=== PATIENT | male | born 1985 | race African-American/Black ===

== ENCOUNTER 2019-01-12 22:02 | Emergency (ER) | payer BC, OTHER ==
[2019-01-12 22:08] VITALS: BP 153/99; PULSE 80; TEMP 97.6; BMI 23.0
--- NOTE | 2019-01-12 22:45 | PDOC ---
History of Present Illness - General Chief Complaint: Pain, Acute Stated Complaint: LEFT HIP PAIN Time Seen by Provider: 01/12/19 22:18 History Source: Patient Exam Limitations: No Limitations - History of Present Illness Initial Comments: 01/12/19 22:50 This is a 33-year-old female who comes in complaining of left hip pain. 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 Patient otherwise does have some hip discomfort secondary to his job. Patient said he didn't do anything different or unusual and just developed some hip discomfort is got progressively over the last 24 hours. Patient has not taken anything for the discomfort. Allergies: as per nursing notes Past Medical History: none Social history: Lives with family. No smoking. No alcohol. No illicit drugs. Surgical history: None General: No fevers or chills, no weakness, no weight loss HEENT: No change in vision. No sore throat,. No ear pain CardioVascular: no chest discomfort. No shortness of breath Respiratory:No cough, or wheezing. Gastrointestinal: no nausea, vomiting, diarrhea or constipation, No rectal bleeding Genitourinary: No dysuria, hematuria, or frequency Musculoskeletal: Left hip discomfort especially on weightbearing and range of motion Neurologic: No headache, vertigo, dizziness or loss of consciousness Psychiatric: nor depression Skin: No rashes or easy bruising Endocrine: no increased thirst or abnormal weight change Allergic: no skin or latex allergy All other systems reviewed and normal GENERAL: The patient is awake, alert, and fully oriented, in no acute distress. HEAD: Normal with no signs of trauma. EYES: Pupils equal, round and reactive to light, extraocular movements intact, sclera anicteric, conjunctiva clear. EXTREMITIES:atraumatic, Normal range of motion, no edema. Hip there is no bony tenderness on palpation there is increased discomfort on internal rotation and abduction. Neurovascular distally is intact NEUROLOGICAL: Normal speech, normal gait. PSYCH: Normal mood, normal affect. SKIN: Warm, Dry, normal turgor, no rashes or lesions noted. X-ray negative for any acute pathology reviewed by me Assessment and plan: This is a 33-year-old male who comes in complaining of left hip pain. There is no obvious injury or pathology on my exam or x-ray. Patient given an NSAID and discharged. Patient given referral to an orthopedist. 01/12/19 23:15 X-ray no acute pathology factors or dislocation Patient will be referred to an orthopedist for follow-up and made no weightbearing given the fact these had the repair and will most likely need a CAT scan or MRI to rule out any subtle pathology. Past History - Past Medical History Allergies/Adverse Reactions: Allergies Allergy/AdvReac Type Severity Reaction Status Date / Time No Known Allergies Allergy Verified 01/12/19 22:03 Home Medications: Ambulatory Orders NK [No Known Home Medication] 01/12/19 COPD: No - Suicide/Smoking/Psychosocial Hx Smoking History: Never smoked Have you smoked in the past 12 months: No Hx Alcohol Use: Yes Drug/Substance Use Hx: No *Physical Exam - Vital Signs Last Vital Signs Temp Pulse Resp BP Pulse Ox 97.6 F 80 16 153/99 99 01/12/19 22:02 01/12/19 22:02 01/12/19 22:02 01/12/19 22:02 01/12/19 22:02 *DC/Admit/Observation/Transfer Diagnosis at time of Disposition: Hip pain Qualifiers: Laterality: left Qualified Code(s): M25.552 - Pain in left hip - Discharge Dispostion Disposition: HOME Condition at time of disposition: Stable Decision to Admit order: No - Referrals Referrals: Roly Michele DO [Staff Physician] - - Patient Instructions Additional Instructions: Take ibuprofen 3 tablets 3 times a day with food don't take on an empty stomach. No weightbearing until cleared by the orthopedist Follow-up with the orthopedist on Wednesday call tomorrow for an appointment x-rays were normal. Return to the emergency department immediately with ANY new, persistent or worsening symptoms. Continue any medications as previously prescribed by your physician. You should follow up with your primary doctor as soon as possible regarding today's emergency department visit. . Please make sure your doctor reviews the results of your emergency evaluation. Thank you for coming to the Emergency Department today for your care. It was a pleasure to see you today. Please note that your evaluation is INCOMPLETE until you follow-up with your doctor. - Post Discharge Activity Forms/Work/School Notes: Back to Work
[2019-01-12] MEDS ORDERED: IBUPROFEN 600 MG TABLET (FP) PO ONE ×2 (22:46→22:50)
== END 2019-01-12 23:25 | disposition home or self-care (01) ==
LOC: FER 22:02
DX: M25.552 Pain in left hip (principal)
CPT/HCPCS: 73502-TC-LT-FY; 99282-25